=== PATIENT | female | born 1930 | race Caucasian/White ===

== ENCOUNTER 2017-04-21 15:41 | Observation (INO) | payer MEDICAID ==
--- NOTE | 2017-04-21 15:48 | EDM.PDOC ---
ED HPI GENERAL MEDICAL PROBLEM - General Chief Complaint: General Stated Complaint: DIZZINESS Time Seen by Provider: 04/21/17 15:41 Source of Information: Reports: Patient, Family History Limitations: Reports: Physical Impairment - History of Present Illness INITIAL COMMENTS - FREE TEXT/NARRATIVE: 87 y.o.w.f with a h/o CT by Afsaneh, came to due to Dizziness. Her SBP was >200 and the patient was transferred to the ed for further care. On arrival to the ed , her SBP was 175 and her dizziness improved further. Pt denied palpitations, CP. Her dizziness is slightly worse when she turns her head to left side. Pt is on no meds. She lives at an independent living place. No N/V/D. Pt has poor po intake for several days. BP 158/87 pulse 85 RR 18 Temp 36.6 O2 sat 96% on RA Onset: Today Onset Date: 04/21/17 Onset Time: 08:00 Duration: Hour(s):, Getting Worse, Intermittent Location: Reports: Generalized Quality: Reports: Other (dizzy) Severity: Mild Improves with: Reports: Rest Worsens with: Reports: Movement Context: Reports: Other (elevated BP) Associated Symptoms: Reports: No Other Symptoms headache Pain Score (Numeric/FACES): 5 - Related Data Allergies Allergy/AdvReac Type Severity Reaction Status Date / Time No Known Allergies Allergy Verified 04/21/17 16:09 Home Meds: Home Meds Aspirin [Adult Low Dose Aspirin EC] 81 mg PO DAILY 11/25/12 [History] Social & Family History - Tobacco Use Second Hand Smoke Exposure: No - Alcohol Use Days Per Week of Alcohol Use: 0 - Recreational Drug Use Recreational Drug Use: No ED ROS GENERAL - Review of Systems Review Of Systems: See Below Constitutional: Reports: No Symptoms HEENT: Reports: No Symptoms Respiratory: Reports: No Symptoms Cardiovascular: Reports: No Symptoms Endocrine: Reports: No Symptoms GI/Abdominal: Reports: No Symptoms : Reports: No Symptoms Musculoskeletal: Reports: No Symptoms Skin: Reports: No Symptoms Neurological: Reports: Dizziness Psychiatric: Reports: No Symptoms Hematologic/Lymphatic: Reports: No Symptoms Immunologic: Reports: No Symptoms ED EXAM, GENERAL - Physical Exam Exam: See Below Exam Limited By: Physical Impairment General Appearance: Alert, No Apparent Distress, Cachetic Eye Exam: Left Eye: Nystagmus (Lateral) Ears: Normal External Exam, Normal Canal Ear Exam: Bilateral Ear: Auricle Normal Nose: Normal Inspection, Normal Mucosa Throat/Mouth: Normal Inspection, Normal Lips, No Airway Compromise, Other (dry mucosal membrane) Head: Atraumatic, Normocephalic Neck: Normal Inspection, Supple, Non-Tender, Full Range of Motion Respiratory/Chest: No Respiratory Distress, Lungs Clear, Normal Breath Sounds, No Accessory Muscle Use, Chest Non-Tender Cardiovascular: Normal Peripheral Pulses, Regular Rate, Rhythm, No Edema, No Rub Peripheral Pulses: 1+: Carotid (R) GI/Abdominal: Normal Bowel Sounds, Soft, Non-Tender, No Organomegaly, No Abnormal Bruit, No Mass (Female) Exam: Deferred Rectal (Female) Exam: Deferred Back Exam: Normal Inspection, Full Range of Motion Extremities: Normal Inspection, Normal Range of Motion, Non-Tender Neurological: Alert, Oriented, CN II-XII Intact, Normal Cognition, Normal Gait ( pt was bale to walk in the ed independently, but felt dizzy) Psychiatric: Normal Affect, Normal Mood Skin Exam: Warm, Dry, Intact, Normal Color, No Rash Lymphatic: No Adenopathy EKG INTERPRETATION EKG Date: 04/21/17 Time: 15:05 Rhythm: NSR Rate (Beats/Min): 94 Curtis: Normal P-Wave: Absent QRS: Normal ST-T: Normal QT: Normal Comparison: NA - No Prior EKG EKG Interpretation Comments: intermittant Atrial-ventricular dual paced complexes Course - Vital Signs Text/Narrative:: 87 y.o.w.f with a h/o CT by Hx, came to due to Dizziness. Her SBP was >200 and the patient was transferred to the ed for further care. On arrival to the ed , her SBP was 175 and her dizziness improved further. Pt denied palpitations, CP. Her dizziness is slightly worse when she turns her head to left side. Pt is on no meds. She lives at an independent living place. No N/V/D. Pt has poor po intake for several days. BP 158/87 pulse 85 RR 18 Temp 36.6 O2 sat 96% on RA PE: Cachectic 87 y.o.w.f NAD with improving of her dizziness, FF and FN and gait were nl. (walked slowly, nl for her.) Imaging: CT head: Calcification of int carotids, NAD Labs: CBC and BMP were nl, GFR was 59, however. UA was pos for micr. hematuria, no UTI ECG: Pending Impression: Unsteady gait, Dehydration, Nystagmus, Full Code Tx: Antivert, Water po Reexam: Improved, pt still felt Dizzy Plan; Admit to zhang Pt. Daughter requested pt to be admitted because she, the patient, lives by herself and she is concerned about falling. Last Recorded V/S: Last Vital Signs Temp 36.6 C 04/22/17 21:55 Pulse 60 04/22/17 21:55 Resp 18 04/22/17 21:55 BP 111/68 04/22/17 21:55 Pulse Ox 96 04/22/17 21:55 - Orders/Labs/Meds Orders: Medication Orders Aspirin (Halfprin) 81 mg PO DAILY JAMILA Sodium Chloride (Saline Flush) 10 ml FLUSH ASDIRECTED PRN PRN Reason: Keep Vein Open Last Admin: 04/22/17 09:45 Dose: 10 ml Labs: Laboratory Tests 04/21/17 04/21/17 04/21/17 Range/Units 15:54 16:05 16:05 WBC 5.2 (4.5-12.0) X10-3/uL RBC 4.66 (3.23-5.20) x10(6)uL Hgb 13.5 (11.5-15.5) g/dL Hct 41.8 (30.0-51.3) % MCV 89.7 (80-96) fL MCH 28.9 (27.7-33.6) pg MCHC 32.2 (32.2-35.4) g/dL RDW 13.9 (11.5-15.5) % Plt Count 166 (125-369) X10(3)uL MPV 8.6 (7.4-10.4) fL Neut % (Auto) 77.2 (46-82) % Lymph % (Auto) 15.4 (13-37) % [place] % (Auto) 6.6 (4-12) % Eos % (Auto) 0 L (1.0-5.0) % Baso % (Auto) 1 (0-2) % Neut # (Auto) 4.1 (1.6-8.3) # Lymph # (Auto) 0.8 (0.6-5.0) # [place] # (Auto) 0.3 (0.0-1.3) # Eos # (Auto) 0.0 (0.0-0.8) # Baso # (Auto) 0.0 (0.0-0.2) # PT 10.7 (8.7-11.1) INR 1.06 (0.89-1.13) Sodium (135-145) mmol/L Potassium (3.5-5.3) mmol/L Chloride (100-110) mmol/L Carbon Dioxide (21-32) mmol/L BUN (7-18) mg/dL Creatinine (0.55-1.02) mg/dL Est Cr Clr Drug Dosing mL/min Estimated GFR (MDRD) (>60) BUN/Creatinine Ratio (9-20) Glucose (80-116) mg/dL Calcium (8.6-10.2) mg/dL Troponin I (<0.017-0.056) ng/mL Urine Color Yellow (YELLOW) Urine Appearance Clear (CLEAR) Urine pH 8.0 H (5.0-6.5) Ur Specific [place] 1.010 (1.010-1.025) Urine Protein Negative (NEGATIVE) mg/dL Urine Glucose (UA) Normal (NEGATIVE) mg/dL Urine Ketones Negative (NEGATIVE) mg/dL Urine Occult Blood Moderate H (NEGATIVE) Urine Nitrite Negative (NEGATIVE) Urine Bilirubin Negative (NEGATIVE) Urine Urobilinogen Normal (NEGATIVE) mg/dL Ur Leukocyte Esterase Negative (NEGATIVE) Urine RBC 5-10 (0) Urine WBC 0-5 (0) Ur Squamous Epith Cells Few H (NS,R,O) Urine Bacteria Few H (NS) 04/21/17 04/21/17 Range/Units 16:05 16:05 WBC (4.5-12.0) X10-3/uL RBC (3.23-5.20) x10(6)uL Hgb (11.5-15.5) g/dL Hct (30.0-51.3) % MCV (80-96) fL MCH (27.7-33.6) pg MCHC (32.2-35.4) g/dL RDW (11.5-15.5) % Plt Count (125-369) X10(3)uL MPV (7.4-10.4) fL Neut % (Auto) (46-82) % Lymph % (Auto) (13-37) % [place] % (Auto) (4-12) % Eos % (Auto) (1.0-5.0) % Baso % (Auto) (0-2) % Neut # (Auto) (1.6-8.3) # Lymph # (Auto) (0.6-5.0) # [place] # (Auto) (0.0-1.3) # Eos # (Auto) (0.0-0.8) # Baso # (Auto) (0.0-0.2) # PT (8.7-11.1) INR (0.89-1.13) Sodium 143 (135-145) mmol/L Potassium 3.8 (3.5-5.3) mmol/L Chloride 105 (100-110) mmol/L Carbon Dioxide 28 (21-32) mmol/L BUN 12 (7-18) mg/dL Creatinine 0.9 (0.55-1.02) mg/dL Est Cr Clr Drug Dosing 33.72 mL/min Estimated GFR (MDRD) 59 L (>60) BUN/Creatinine Ratio 13.3 (9-20) Glucose 112 (80-116) mg/dL Calcium 9.7 (8.6-10.2) mg/dL Troponin I < 0.017 L (<0.017-0.056) ng/mL Urine Color (YELLOW) Urine Appearance (CLEAR) Urine pH (5.0-6.5) Ur Specific [place] (1.010-1.025) Urine Protein (NEGATIVE) mg/dL Urine Glucose (UA) (NEGATIVE) mg/dL Urine Ketones (NEGATIVE) mg/dL Urine Occult Blood (NEGATIVE) Urine Nitrite (NEGATIVE) Urine Bilirubin (NEGATIVE) Urine Urobilinogen (NEGATIVE) mg/dL Ur Leukocyte Esterase (NEGATIVE) Urine RBC (0) Urine WBC (0) Ur Squamous Epith Cells (NS,R,O) Urine Bacteria (NS) Meds: Medications Generic Name Dose Route Start Last Admin Trade Name Freq PRN Reason Stop Dose Admin Aspirin 81 mg 04/23/17 09:00 Halfprin PO DAILY JAMILA Sodium Chloride 10 ml 04/21/17 15:49 04/22/17 09:45 Saline Flush FLUSH 10 ml ASDIRECTED PRN Administration Keep Vein Open Discontinued Medications Generic Name Dose Route Start Last Admin Trade Name Freq PRN Reason Stop Dose Admin Sodium Chloride 1,000 mls @ 125 mls/hr 04/21/17 17:45 04/22/17 09:30 Normal Saline IV 125 mls/hr ASDIRECTED JAMILA Infusion Meclizine HCl 25 mg 04/21/17 16:44 04/21/17 16:55 Antivert PO 04/21/17 16:45 25 mg ONETIME ONE Administration Departure - Departure Time of Disposition: 17:43 Disposition: Refer to Observation Condition: Fair Clinical Impression: Unsteady gait - Discharge Information
[2017-04-21] MEDS ORDERED: Sodium Chloride 0.9% 10 ML Syringe FLUSH PRN (15:49)
[2017-04-21] MEDS ORDERED: Meclizine 25 MG Tab PO ONE (16:44)
[2017-04-21] MEDS: Sodium Chloride 0.9% 1,000 ML IV SCH (20:04)
[2017-04-22] MEDS: Sodium Chloride 0.9% 1,000 ML IV SCH (04:17)
--- NOTE | 2017-04-22 09:46 | PCM.HP ---
H&P History of Present Illness - General Date of Service: 04/22/17 Source of Information: Patient History Limitations: Reports: No Limitations - History of Present Illness Initial Comments - Free Text/Narative: This is a pleasant 87-year-old female patient came in last night after she been seen in urgent care. She states it 6 AM in the morning she got up and she had lots of dizziness. She was so dizzy she felt that she was going to fall so she crawled over to the bathroom. Later she had her daughter take her to the urgent care. She started having some chest discomfort with the dizziness. She has a history of ID 7 years ago. They transferred her to the ER and they did a CT scan in the ER doc reported that it was negative. Her blood pressure in the urgent care was over 200 systolic. headache Pain Score (Numeric/FACES): 5 - Related Data Allergies/Adverse Reactions: Allergies Allergy/AdvReac Type Severity Reaction Status Date / Time No Known Allergies Allergy Verified 04/21/17 16:09 Home Medications: Home Meds Aspirin [Adult Low Dose Aspirin EC] 81 mg PO DAILY 11/25/12 [History] Past Medical History Cardiovascular History: Reports: Other (See Below) Other Cardiovascular History: daughter states that patient had a heart attack 10 years ago and was sent to [place]. 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 [employer] WORK[employer] History: Reports: - Past Surgical History GI Surgical History: Reports: Cholecystectomy Oncologic Surgical History: Reports: Mastectomy Other Oncologic Surgeries/Procedures: Right side Social & Family History - Family History Family Medical History: Noncontributory - Tobacco Use Smoking Status *Q: Never Smoker Second Hand Smoke Exposure: No - Caffeine Use Caffeine Use: Reports: Coffee - Alcohol Use Days Per Week of Alcohol Use: 0 - Recreational Drug Use Recreational Drug Use: No H&P Review of Systems - Review of Systems: Review Of Systems: See Below General: Reports: No Symptoms HEENT: Reports: No Symptoms Pulmonary: Reports: No Symptoms Cardiovascular: Reports: Chest Pain, Palpitations Gastrointestinal: Reports: No Symptoms Genitourinary: Reports: No Symptoms Musculoskeletal: Reports: No Symptoms Skin: Reports: No Symptoms Psychiatric: Reports: No Symptoms Neurological: Reports: Dizziness (Spinning around motion.) Hematologic/Lymphatic: Reports: No Symptoms Immunologic: Reports: No Symptoms Exam - Exam Exam: See Below - Vital Signs Vital Signs: Last Vital Signs Temp 98.1 F 04/22/17 04:00 Pulse 72 04/22/17 06:41 Resp 18 04/22/17 06:41 BP 143/90 H 04/22/17 06:41 Pulse Ox 100 04/22/17 06:41 Weight: 111 lb 9.6 oz - Exam General: Alert, Oriented, Cooperative HEENT: Hearing Intact, Posterior Pharynx Clear, TMs Clear Neck: Supple, Trachea Midline. No: Lymphadenopathy Lungs: Clear to Auscultation, Normal Respiratory Effort Cardiovascular: Regular Rate, Regular Rhythm. No: Systolic Murmur, Diastolic Murmur GI/Abdominal Exam: Normal Bowel Sounds, Soft, Non-Tender, No Organomegaly, No Distention, No Abnormal Bruit, No Mass, Pelvis Stable Back Exam: Normal Inspection, Full Range of Motion Extremities: Normal Inspection, No Pedal Edema Skin: Warm, Dry, Intact Neurological: Normal Speech, Normal Tone Neuro Extensive - Mental Status: Alert, Oriented x3, Normal Mood/Affect, Normal Cognition, Memory Intact Neuro Extensive - Motor, Sensory, Reflexes: Normal Gait. No: Ataxia Psychiatric: Alert, Normal Affect, Normal Mood - Patient Data Result Diagrams: 04/21/17 16:05 04/21/17 16:05 *Q Meaningful Use (ADM) - VTE *Q VTE Criteria *Q: - Stroke *Q Stroke Criteria *Q: - AMI *Q AMI Criteria *Q: - Problem List (1) Vertigo SNOMED Code(s): 347030359 ICD Code: R42 - DIZZINESS AND GIDDINESS Status: Acute Current Visit: Yes (2) High blood pressure SNOMED Code(s): 97741035 ICD Code: I10 - ESSENTIAL (PRIMARY) HYPERTENSION Status: Acute Current Visit: Yes (3) Microscopic hematuria SNOMED Code(s): 592959789 ICD Code: R31.29 - OTHER MICROSCOPIC HEMATURIA Status: Acute Current Visit: Yes (4) Palliative care status SNOMED Code(s): 256753442 ICD Code: Z51.5 - ENCOUNTER FOR PALLIATIVE CARE Status: Acute Current Visit: Yes Problem List Initiated/Reviewed/Updated: Yes Orders Last 24hrs: Active Orders 24 hr Category Date Time Status EKG Documentation Completion [RC] ASDIRECTED Care 04/21/17 18:43 Active EKG Documentation Completion [RC] ASDIRECTED Care 04/22/17 09:24 Active TROPONIN I [CHEM] Routine Lab 04/22/17 09:24 Ordered EKG 12 Lead [EK] Routine Ther 04/21/17 18:42 Ordered EKG 12 Lead [EK] Stat Ther 04/22/17 09:24 Ordered Medication Orders Sodium Chloride (Normal Saline) 1,000 mls @ 125 mls/hr IV ASDIRECTED JAMILA Last Admin: 04/22/17 04:17 Dose: 125 mls/hr Infusion: 04/22/17 04:04 Dose: 125 mls/hr Admin: 04/21/17 20:04 Dose: 125 mls/hr Sodium Chloride (Saline Flush) 10 ml FLUSH ASDIRECTED PRN PRN Reason: Keep Vein Open Assessment/Plan Comment:: 1. Admit for observation. 2. Full code. 3. IV fluids. 4. Meclizine when necessary. 5. Repeat EKG and troponin the a.m. Troponin was normal and EKG had chronic findings but no acute findings. 6. Patient's only on aspirin and eyedrops at home. Resume medications. 7. Observed see how the patient does. Watch blood pressure closely. If it does not restart to resolve consider giving a beta roland. 8. Chest pain has resolved but watch for recurrence. 9. Up with assist in ambulation with assist. 10. Diet as tolerated.
--- NOTE | 2017-04-23 08:14 | PCM.PN ---
- General Info Date of Service: 04/23/17 Admission Dx/Problem (Free Text): Patient states when she is laying in bed and looks up she has a little dizziness. When she gets up and walks she has no dizziness now. Blood pressure is under control and no medications. Her strength is normal the patient states. - Patient Data Vitals - Most Recent: Last Vital Signs Temp 98.1 F 04/23/17 04:00 Pulse 74 04/23/17 04:00 Resp 18 04/23/17 04:00 BP 147/80 H 04/23/17 04:00 Pulse Ox 95 04/23/17 04:00 Weight - Most Recent: 111 lb 9.6 oz I&O - Last 24 Hours: Intake & Output 04/22/17 04/23/17 04/23/17 22:59 06:59 14:59 Intake Total 400 Output Total 700 400 Balance -300 -400 Lab Results Last 24 Hours: Laboratory Results - last 24 hr 04/22/17 Range/Units 10:22 Troponin I 0.018 (<0.017-0.056) ng/mL Med Orders - Current: Current Medications Aspirin (Halfprin) 81 mg PO DAILY [facility] Sodium Chloride (Saline Flush) 10 ml FLUSH ASDIRECTED PRN PRN Reason: Keep Vein Open Last Admin: 04/22/17 09:45 Dose: 10 ml Discontinued Medications Sodium Chloride (Normal Saline) 1,000 mls @ 125 mls/hr IV ASDIRECTED JAMILA Last Infusion: 04/22/17 09:30 Dose: 125 mls/hr Meclizine HCl (Antivert) 25 mg PO ONETIME ONE Stop: 04/21/17 16:45 Last Admin: 04/21/17 16:55 Dose: 25 mg - Exam General: Alert, Oriented Lungs: Normal Respiratory Effort Back Exam: Normal Inspection, Full Range of Motion Extremities: Normal Range of Motion, Non-Tender, No Pedal Edema Neurological: Normal Gait, Normal Speech, Normal Tone Psy/Mental Status: Alert, Normal Affect, Normal Mood - Problem List & Annotations (1) Vertigo SNOMED Code(s): 071949495 Code(s): R42 - DIZZINESS AND GIDDINESS Status: Acute Current Visit: Yes (2) Microscopic hematuria SNOMED Code(s): 085200717 Code(s): R31.29 - OTHER MICROSCOPIC HEMATURIA Status: Acute Current Visit : Yes (3) Palliative care status SNOMED Code(s): 311587682 Code(s): Z51.5 - ENCOUNTER FOR PALLIATIVE CARE Status: Acute Current Visit: Yes - Problem List Review Problem List Initiated/Reviewed/Updated: Yes - My Orders Last 24 Hours: My Active Orders 04/22/17 09:24 EKG 12 Lead [EK] Stat 04/22/17 09:47 Convert IV to Saline Lock [OM.PC] Routine 04/23/17 08:12 Ready for Discharge [RC] PER UNIT ROUTINE 04/23/17 09:00 Aspirin [Halfprin] 81 mg PO DAILY - Plan Plan:: 1. Discharge to home on [id number] meclizine. 2. Follow-up in 7-10 days with her primary provider and check a UA with micro-.
--- NOTE | 2017-04-23 08:16 | PCM.DCSUM1 ---
Discharge Summary - Hospital Course Free Text/Narrative:: Hospital course-patient was admitted she had 5-10 red blood cells on micro-. She has no symptoms. Patient's dizziness was improved. No signs of stroke. CT scan was verbally reported to me by the ER doc who got the verbal report so there is no signs of stroke. Patient was able to walk by herself and did well. The only time she had dizzy hears when she was in bed looking up. But she is walking she did not get dizzy. Suggestion she get a walker temporarily until this gets better. She is meclizine [id number] when necessary. Brief History: This is a pleasant 87-year-old female patient came in last night after she been seen in urgent care. She states it 6 AM in the morning she got up and she had lots of dizziness. She was so dizzy she felt that she was going to fall so she crawled over to the bathroom. Later she had her daughter take her to the urgent care. She started having some chest discomfort with the dizziness. She has a history of [place] 7 years ago. They transferred her to the ER and they did a CT scan in the ER doc reported that it was negative. Her blood pressure in the urgent care was over 200 systolic. - Discharge Data Discharge Date: 04/23/17 Discharge Disposition: Home, Self-Care 01 Condition: Good - Discharge Diagnosis/Problem(s) (1) Vertigo SNOMED Code(s): 154386504 ICD Code: R42 - DIZZINESS AND GIDDINESS Status: Acute Current Visit: Yes (2) Microscopic hematuria SNOMED Code(s): 639386956 ICD Code: R31.29 - OTHER MICROSCOPIC HEMATURIA Status: Acute Current Visit: Yes (3) Palliative care status SNOMED Code(s): 570529580 ICD Code: Z51.5 - ENCOUNTER FOR PALLIATIVE CARE Status: Acute Current Visit: Yes - Patient Instructions Diet: Regular Diet as Tolerated Activity: As Tolerated Driving: Do Not Drive Showering/Bathing: May Shower Notify Provider of: Increased Pain Other/Special Instructions: 1. Recheck with Dr. Cevallos in 7-10 days with a UA with micro-before the appointment. 2. Meclizine [id number] when necessary. - Discharge Plan Home Medications: Home Meds Aspirin [Adult Low Dose Aspirin EC] 81 mg PO DAILY 11/25/12 [History] Forms: ED Department Discharge Referrals: Crow Cevallos MD [Primary Care Provider] - - Patient Data Vitals - Most Recent: Last Vital Signs Temp 98.1 F 04/23/17 04:00 Pulse 74 04/23/17 04:00 Resp 18 04/23/17 04:00 BP 147/80 H 04/23/17 04:00 Pulse Ox 95 04/23/17 04:00 Weight - Most Recent: 111 lb 9.6 oz I&O - Last 24 hours: Intake & Output 04/22/17 04/23/17 04/23/17 22:59 06:59 14:59 Intake Total 400 Output Total 700 400 Balance -300 -400 Lab Results - Last 24 hrs: Laboratory Results - last 24 hr 04/22/17 Range/Units 10:22 Troponin I 0.018 (<0.017-0.056) ng/mL Med Orders - Current: Current Medications Aspirin (Halfprin) 81 mg PO DAILY JAMILA Sodium Chloride (Saline Flush) 10 ml FLUSH ASDIRECTED PRN PRN Reason: Keep Vein Open Last Admin: 04/22/17 09:45 Dose: 10 ml Discontinued Medications Sodium Chloride (Normal Saline) 1,000 mls @ 125 mls/hr IV ASDIRECTED JAMILA Last Infusion: 04/22/17 09:30 Dose: 125 mls/hr Meclizine HCl (Antivert) 25 mg PO ONETIME ONE Stop: 04/21/17 16:45 Last Admin: 04/21/17 16:55 Dose: 25 mg *Q Meaningful Use (DIS) - VTE *Q VTE Criteria *Q: - Stroke *Q Stroke Criteria *Q: - AMI *Q AMI Criteria *Q:
[2017-04-23] MEDS ORDERED: Aspirin 81 MG Tab.EC PO SCH (09:00)
[2017-04-23 10:09] VITALS: BP 134/89
--- NOTE | 2017-04-24 08:23 | CT ---
INDICATION: Dizziness, headache - frontal - increased blood pressure started at 0800 today. No history of trauma or previous strokes. CT HEAD WITHOUT CONTRAST: Serial contiguous 2.5 and 5 mm sections were obtained through the brain without contrast. Total exam DLP = 949.36 mGy-cm. Retention cysts are noted, one in each maxillary antrum and one in each of two ethmoidal air cells on the right. These are of small size. Otherwise, paranasal sinuses were well-aerated. Mastoid air cells were well-aerated. Degenerative changes are noted at the atlantoodontoid joint of mild degree. No cranial abnormality was suggested. No shift of midline structures was seen. Ventricles are prominent, compatible with central atrophy. Calcifications are noted in the internal carotid arteries. Cavum septum pellucidum is noted - a normal variant. Decreased density is noted in the white matter in a patchy fashion, compatible with moderate microvascular disease. Other cause of leukoencephalopathy cannot be excluded, however. No bleeding site or hematoma was identified - no definite acute intracranial abnormality was seen. IMPRESSION: 1. No definite acute intracranial abnormality. 2. Moderate microvascular disease type changes in the white matter, although other cause of leukoencephalopathy cannot be excluded. 3. Cerebrovascular disease with internal carotid artery calcifications. 4. Minimal retention cysts in the paranasal sinuses, as noted above. 5. Central atrophy of moderate degree. Report was called to Dr. Parisi at 1700 hours on 04/21/2017. [facility]
== END 2017-04-23 11:25 | disposition home or self-care (01) ==
LOC: FB.ED 15:41 → FB.MS 18:00
PROVIDERS: ADMIT Emergency Medicine; ATTEND Family Medicine
DX: R42 Dizziness and giddiness (principal); R31.29 Other microscopic hematuria; I10 Essential (primary) hypertension; I25.2 Old myocardial infarction; Z51.5 Encounter for palliative care; Z79.82 Long term (current) use of aspirin; Z90.49 Acquired absence of other specified parts of digestive tract
CPT/HCPCS: 36415; 70450; 80048; 81001; 84484; 85025; 85610; 93005; 96360; 96361; 99284; A9270-GY; G0378; J7040; J7050

== ENCOUNTER 2018-08-21 10:39 | Emergency (ER) | payer MEDICAID, MEDICARE ==
[2018-08-21] MEDS ORDERED: Sodium Chloride 0.9% 10 ML Syringe FLUSH PRN (11:03)
[2018-08-21] MEDS ORDERED: Sodium Chloride 0.9% 500 ML IV ONE ×2 (11:09→11:54)
[2018-08-21] MEDS ORDERED: Sodium Chloride 0.9% 1,000 ML IV SCH (11:15)
--- NOTE | 2018-08-21 11:34 | EDM.PDOC ---
ED HPI GENERAL MEDICAL PROBLEM - General Chief Complaint: Cardiovascular Problem Stated Complaint: SYNCOPE AND VOMITTING Time Seen by Provider: 08/21/18 11:05 Source of Information: Reports: Patient History Limitations: Reports: No Limitations - History of Present Illness INITIAL COMMENTS - FREE TEXT/NARRATIVE: 88-year-old female who reports that on Monday she began to have some nausea and malaise in the afternoon and by that evening she had vomiting, just a few episodes at that time. The following day she had vomiting and diarrhea, both were fairly profuse. She reports that Monday her vomiting stopped and she has had continued diarrhea that has been fairly profuse and watery. She has had little luck keeping any fluids down on Monday night and Monday but has been able to take liquids since then but with poor intake of these liquids and numerous diarrhea stools. Last night she began to feel very weak and dizzy while she was standing at the stove and was trying to get herself away from the stove and apparently had a syncopal episode where she fell and hit her chin and her right shoulder. She was able to get herself up off the floor following this (unknown period of time), ate some soup and then went to bed. She had also had diarrhea at that time and was able to clean herself up following this. She has had no chest pain. She's had no shortness of breath. She does have some right shoulder pain which she rates as about a 5 or 6/10. It is a sharp and sore pain that is worse with movement and palpation. She has had some intermittent abdominal cramping but has no abdominal pain now. She has some mild posterior neck pain. She has an abrasion over her left chin. No fevers. No chills. She has had sweats. She feels dizzy and weak all over. She required quite a bit of assistance from her daughter to get her into the emergency room. She presents via motor vehicle. Apparently her son had vomiting and diarrhea this weekend as well. There are no other associated signs or symptoms. There are no other modifying factors. Onset: Other (08/17/2018.) Duration: Getting Worse Location: Reports: Head, Neck, Abdomen, Upper Extremity, Right (Right shoulder) Quality: Reports: Sharp (And sore in neck, shoulder and head.), Other (Cramping and sore in abdomen) Severity: Moderate Improves with: Reports: Rest Worsens with: Reports: Movement Context: Reports: Other (As above) Associated Symptoms: Reports: Loss of Appetite, Nausea/Vomiting, Weakness Treatments PRODUCT MANAGEMENT MANAGER: Reports: Other (see below) (Nothing) - Related Data Allergies Allergy/AdvReac Type Severity Reaction Status Date / Time No Known Allergies Allergy Verified 08/21/18 11:19 Home Meds: Home Meds Aspirin [Adult Low Dose Aspirin EC] 81 mg PO DAILY 11/25/12 [History] Past Medical History HEENT History: Reports: Other (See Below) (Dry eyes on Restasis drops) Oncologic (Cancer) History: Reports: Breast - Past Surgical History GI Surgical History: Reports: Cholecystectomy, Colonoscopy Female Surgical History: Reports: Mastectomy (Right) Oncologic Surgical History: Reports: Mastectomy Other Oncologic Surgeries/Procedures: Right side Social & Family History - Tobacco Use Smoking Status *Q: Never Smoker - Caffeine Use Caffeine Use: Reports: Coffee - Alcohol Use Alcohol Use History: Yes Alcohol Use Frequency: Rarely - Living Situation & Occupation Living situation: Reports: , Assisted Living Occupation: Retired Social History Comment: Her daughter is here with her. ED ROS GENERAL - Review of Systems Review Of Systems: See Below Constitutional: Reports: Chills, Malaise, Weakness, Night Sweats HEENT: Reports: Other (Dry mouth) Respiratory: Reports: No Symptoms Cardiovascular: Reports: Lightheadedness, Palpitations GI/Abdominal: Reports: Abdominal Pain, Diarrhea, Nausea, Vomiting : Reports: No Symptoms Musculoskeletal: Reports: No Symptoms Skin: Reports: No Symptoms Neurological: Reports: Headache (Mild) Hematologic/Lymphatic: Reports: No Symptoms Immunologic: Reports: No Symptoms ED EXAM, GENERAL - Physical Exam Exam: See Below Exam Limited By: No Limitations General Appearance: Alert, Moderate Distress, Thin, Other (She is awake alert and appropriately responsive.) Eye Exam: Bilateral Eye: EOMI, Normal Inspection, PERRL Ears: Normal External Exam Ear Exam: Bilateral Ear: Auricle Normal Nose: Normal Inspection, Normal Mucosa, No Blood Throat/Mouth: Normal Voice, No Airway Compromise, Other (Dry mucous membranes; no posterior pharyngeal erythema) Head: Other (Tenderness with ecchymosis and abrasion on the lower chin) Respiratory/Chest: No Respiratory Distress, Lungs Clear, Normal Breath Sounds, No Accessory Muscle Use, Chest Non-Tender Peripheral Pulses: 2+: Radial (L), Radial (R), Dorsalis Pedis (L), Dorsalis Pedis (R) GI/Abdominal: Soft (And scaphoid), Non-Tender, No Mass, Abnormal Bowel Sounds ( Increased) Back Exam: Normal Inspection Extremities: Normal Inspection Neurological: Alert, Oriented, CN II-XII Intact, Normal Cognition, No Motor/ Sensory Deficits Skin Exam: Warm, Dry, Normal Color, No Rash EKG INTERPRETATION EKG Date: 08/21/18 Time: 11:00 Rhythm: A-Fib (With RVR) Rate (Beats/Min): 187 Lulu: LAD-Left Lulu Deviation P-Wave: Absent QRS: LBBB (Left anterior fascicular block) ST-T: Depressed (Diffuse and probably rate related) QT: Normal Comparison: Change From Previous EKG (A. fib is new from EKG performed on 2017. LVH, left anterior fascicular block and poor R-wave progression is same) EKG Interpretation Comments: Repeat EKG performed after 1 L normal saline bolus had been given and diltiazem times IV. 08/21/2018 13:28: EKG shows a normal sinus rhythm with a rate of 76. There is evidence of LVH and poor R-wave progression but the rate related ST-T changes have resolved there is a left axis with a prolonged QTC. Course - Vital Signs Last Recorded V/S: Last Vital Signs Temp 36.2 C 08/21/18 11:04 Pulse 175 H 08/21/18 11:04 Resp 18 08/21/18 11:04 BP 113/73 08/21/18 11:04 Pulse Ox 91 L 08/21/18 11:04 - Orders/Labs/Meds Orders: Active Orders 24 hr Category Date Time Status EKG Documentation Completion [RC] ASDIRECTED Care 08/21/18 11:07 Active Insert Urinary Catheter [OM.PC] Q24H Care 08/21/18 11:15 Ordered Urinary Catheter Assessment [RC] QSHIFT Care 08/21/18 11:07 Active Vaccines to be Administered [RC] PER UNIT ROUTINE Care 08/21/18 11:43 Active Cervical Spine wo Cont [CT] Stat Exams 08/21/18 11:41 Taken Chest 1V Frontal [CR] Stat Exams 08/21/18 11:03 Taken Head wo Cont [CT] Stat Exams 08/21/18 11:41 Taken Shoulder Comp Rt [CR] Stat Exams 08/21/18 11:41 Taken CULTURE BLOOD [BC] Urgent Lab 08/21/18 11:40 Received CULTURE BLOOD [BC] Urgent Lab 08/21/18 11:45 Received CULTURE URINE [RM] Stat Lab 08/21/18 11:45 Received Diltiazem 125 mg Med 08/21/18 13:15 Active Sodium Chloride 0.9% [Normal Saline] 100 ml IV NOW Sodium Chloride 0.9% [Normal Saline] 1,000 ml Med 08/21/18 11:15 Active IV ASDIRECTED Sodium Chloride 0.9% [Saline Flush] Med 08/21/18 11:03 Active 10 ml FLUSH ASDIRECTED PRN Blood Culture x2 Reflex Set [OM.PC] Urgent Oth 08/21/18 11:03 Ordered Peripheral IV Insertion Adult [OM.PC] Routine Oth 08/21/18 11:03 Ordered EKG 12 Lead [EK] Routine Ther 08/21/18 11:03 Ordered Medication Orders Sodium Chloride (Normal Saline) 1,000 mls @ 100 mls/hr IV ASDIRECTED JAMILA Last Admin: 08/21/18 11:37 Dose: 100 mls/hr Diltiazem HCl 125 mg/ Sodium (Chloride) 125 mls @ 5 mls/hr IV NOW STA; Protocol Stop: 08/22/18 14:14 Sodium Chloride (Saline Flush) 10 ml FLUSH ASDIRECTED PRN PRN Reason: Keep Vein Open Labs: Laboratory Tests 08/21/18 08/21/18 08/21/18 Range/Units 11:40 11:40 11:40 WBC 5.4 (4.5-12.0) X10-3/uL RBC 4.31 (3.23-5.20) x10(6)uL Hgb 13.1 (11.5-15.5) g/dL Hct 39.1 (30.0-51.3) % MCV 90.8 (80-96) fL MCH 30.4 (27.7-33.6) pg MCHC 33.5 (32.2-35.4) g/dL RDW 14.3 (11.5-15.5) % Plt Count 136 (125-369) X10(3)uL MPV 8.6 (7.4-10.4) fL Neut % (Auto) 80.9 (46-82) % Lymph % (Auto) 9.9 L (13-37) % Sunflower % (Auto) 9.0 (4-12) % Eos % (Auto) 0 L (1.0-5.0) % Baso % (Auto) 0 (0-2) % Neut # (Auto) 4.3 (1.6-8.3) # Lymph # (Auto) 0.5 L (0.6-5.0) # Sunflower # (Auto) 0.5 (0.0-1.3) # Eos # (Auto) 0.0 (0.0-0.8) # Baso # (Auto) 0.0 (0.0-0.2) # Sodium 142 (135-145) mmol/L Potassium 3.4 L (3.5-5.3) mmol/L Chloride 105 (100-110) mmol/L Carbon Dioxide 21 (21-32) mmol/L BUN 26 H D (7-18) mg/dL Creatinine 1.3 H (0.55-1.02) mg/dL Est Cr Clr Drug Dosing TNP Estimated GFR (MDRD) 39 L (>60) BUN/Creatinine Ratio 20.0 (9-20) Glucose 145 H (80-116) mg/dL Lactic Acid (0.4-2.2) mmol/L Calcium 8.5 L (8.6-10.2) mg/dL Total Bilirubin 0.5 (0.1-1.3) mg/dL AST 105 H (5-25) IU/L ALT 56 H (12-36) U/L Alkaline Phosphatase 135 H (56-112) IU/L Creatine Kinase (60-160) IU/L Troponin I (<0.017-0.056) ng/mL C-Reactive Protein (0.5-0.9) mg/dL NT-Pro-B Natriuret Pep (<=450) pg/mL Total Protein 6.8 (6.0-8.0) g/dL Albumin 3.4 (2.9-4.5) g/dL Globulin 3.4 g/dL Albumin/Globulin Ratio 1.0 Urine Color Yellow (YELLOW) Urine Appearance Slightly cloudy (CLEAR) Urine pH 5.0 (5.0-6.5) Ur Specific [place] 1.025 (1.010-1.025) Urine Protein 100 H (NEGATIVE) mg/dL Urine Glucose (UA) 50 H (NORMAL) mg/dL Urine Ketones 15 H (NEGATIVE) mg/dL Urine Occult Blood Moderate H (NEGATIVE) Urine Nitrite Negative (NEGATIVE) Urine Bilirubin Moderate H (NEGATIVE) Urine Urobilinogen 1 H (NEGATIVE) mg/dL Ur Leukocyte Esterase Small H (NEGATIVE) Urine RBC 5-10 H (0-5) Urine WBC 5-10 H (0-5) Ur Squamous Epith Cells Few H (NS,R,O) Amorphous Sediment Many Urine Bacteria Few H (NS) Hyaline Casts Many H (NS) Fine Granular Casts Few H (NS) Coarse Granular Casts Few H (NS) Urine Mucus Few H (NS) 08/21/18 08/21/18 08/21/18 Range/Units 11:40 11:40 11:40 WBC (4.5-12.0) X10-3/uL RBC (3.23-5.20) x10(6)uL Hgb (11.5-15.5) g/dL Hct (30.0-51.3) % MCV (80-96) fL MCH (27.7-33.6) pg MCHC (32.2-35.4) g/dL RDW (11.5-15.5) % Plt Count (125-369) X10(3)uL MPV (7.4-10.4) fL Neut % (Auto) (46-82) % Lymph % (Auto) (13-37) % Sunflower % (Auto) (4-12) % Eos % (Auto) (1.0-5.0) % Baso % (Auto) (0-2) % Neut # (Auto) (1.6-8.3) # Lymph # (Auto) (0.6-5.0) # Sunflower # (Auto) (0.0-1.3) # Eos # (Auto) (0.0-0.8) # Baso # (Auto) (0.0-0.2) # Sodium (135-145) mmol/L Potassium (3.5-5.3) mmol/L Chloride (100-110) mmol/L Carbon Dioxide (21-32) mmol/L BUN (7-18) mg/dL Creatinine (0.55-1.02) mg/dL Est Cr Clr Drug Dosing Estimated GFR (MDRD) (>60) BUN/Creatinine Ratio (9-20) Glucose (80-116) mg/dL Lactic Acid 2.6 H (0.4-2.2) mmol/L Calcium (8.6-10.2) mg/dL Total Bilirubin (0.1-1.3) mg/dL AST (5-25) IU/L ALT (12-36) U/L Alkaline Phosphatase (56-112) IU/L Creatine Kinase 210 H (60-160) IU/L Troponin I 2.383 H* (<0.017-0.056) ng/mL C-Reactive Protein < 0.2 L (0.5-0.9) mg/dL NT-Pro-B Natriuret Pep 2993 H* (<=450) pg/mL Total Protein (6.0-8.0) g/dL Albumin (2.9-4.5) g/dL Globulin g/dL Albumin/Globulin Ratio Urine Color (YELLOW) Urine Appearance (CLEAR) Urine pH (5.0-6.5) Ur Specific [place] (1.010-1.025) Urine Protein (NEGATIVE) mg/dL Urine Glucose (UA) (NORMAL) mg/dL Urine Ketones (NEGATIVE) mg/dL Urine Occult Blood (NEGATIVE) Urine Nitrite (NEGATIVE) Urine Bilirubin (NEGATIVE) Urine Urobilinogen (NEGATIVE) mg/dL Ur Leukocyte Esterase (NEGATIVE) Urine RBC (0-5) Urine WBC (0-5) Ur Squamous Epith Cells (NS,R,O) Amorphous Sediment Urine Bacteria (NS) Hyaline Casts (NS) Fine Granular Casts (NS) Coarse Granular Casts (NS) Urine Mucus (NS) Meds: Medications Generic Name Dose Route Start Last Admin Trade Name Freq PRN Reason Stop Dose Admin Sodium Chloride 1,000 mls @ 100 mls/hr 08/21/18 11:15 08/21/18 11:37 Normal Saline IV 100 mls/hr ASDIRECTED JAMILA Administration Diltiazem HCl 125 mg/ Sodium 125 mls @ 5 mls/hr 08/21/18 13:15 Chloride IV 08/22/18 14:14 NOW STA Protocol 5 MG/HR Sodium Chloride 10 ml 08/21/18 11:03 Saline Flush FLUSH ASDIRECTED PRN Keep Vein Open Discontinued Medications Generic Name Dose Route Start Last Admin Trade Name Varghese PRN Reason Stop Dose Admin Diltiazem HCl 10 mg 08/21/18 12:30 08/21/18 12:41 Diltiazem IVPUSH 08/21/18 12:31 10 mg ONETIME ONE Administration Diphtheria/Tetanus/Acell Pertussis 0.5 ml 08/21/18 11:43 08/21/18 12:46 Adacel IM 08/21/18 11:44 0.5 ml .ONCE ONE Administration Sodium Chloride 500 mls @ 999 mls/hr 08/21/18 11:09 08/21/18 11:05 Normal Saline IV 08/21/18 11:39 999 mls/hr .BOLUS ONE Administration Sodium Chloride 500 mls @ 999 mls/hr 08/21/18 11:54 08/21/18 12:05 Normal Saline IV 08/21/18 12:24 999 mls/hr .BOLUS ONE Administration - Radiology Interpretation Free Text/Narrative:: Portable chest x-ray showed no evidence of congestive heart failure. There was no pneumonia. Per the [facility] radiologist. Right shoulder x-ray shows no acute fracture. CT scan of the head showed no acute abnormality per the [facility] radiologist. CT scan of cervical spine showed no acute fracture or malalignment per the [facility] radiologist. - Re-Assessments/Exams Free Text/Narrative Re-Assessment/Exam: 08/21/18 12:15: Patient has received a fluid bolus. Her blood pressure is up in the 90-100 systolic range but she still has heart rate in the 140-180 range. She is awake and alert. She denies any pain at present. She has no trouble breathing at this point. The plan will be to give her an additional fluid bolus and also to give her diltiazem cautiously to attempt rate control. 08/21/18 13:05: Heart rate is down into the 90s to 110s and still in atrial fibrillation. Her blood pressure is in the 110 systolic range. I will plan on giving her another 5 mg of diltiazem placing her on a diltiazem drip. 08/21/18 13:35: The patient's heart rate is down in the 70s and EKG confirms conversion to normal sinus rhythm. Her blood pressure is 110-120 systolic. She is awake, alert and appropriate. A Werner catheter is in place for accurate monitoring of urine output and she has begun to make urine. She has had no diarrhea stools while in the emergency department. She has had no vomiting. She denies any chest pain or shortness of breath at this time. She states she feels much improved than previous. The CT scans of her head and cervical spine are negative. The x-ray of her right shoulder is negative. The patient does have evidence of volume depletion with elevated BUN/creatinine/acute kidney injury. She also has an elevated troponin consistent with a non-STEMI. She will need cardiology specially services which are not available at [facility]. I discussed this with the patient and with her daughter and they would prefer that I discussed the case with the doctors at [facility] in [place]. 08/21/18 13:45: I discussed patient's case with Dr. Campbell, hospitalist at [facility] in [place], and he has agreed to accept the patient in transfer. The patient will be transferred via ambulance to [facility] for direct admission. The patient and her daughter are in agreement with this plan for transfer. 08/21/18 15:08: EMS is here and patient is being transported to [facility] now. She still has no chest pain. Her breathing pattern is normal. Her O2 saturation is normal. Her blood pressure is in the 120 systolic range with pulse rate in the 70s. Her Werner catheter shows good urine production. Departure - Departure Time of Disposition: 15:00 Disposition: DC/Tfer to Acute Hospital 02 Reason for Transfer *Q: Other (Patient with non-STEMI and potentially cardiac catheterization/intervention) Condition: Critical Clinical Impression: Non-ST elevated myocardial infarction (non-STEMI), Severe dehydration, Atrial fibrillation with RVR, Transient hypotension, Acute kidney injury Diarrhea Qualifiers: Diarrhea type: unspecified type Qualified Code(s): R19.7 - Diarrhea, unspecified Referrals: Crow Cevallos MD [Primary Care Provider] - Forms: ED Department Discharge - My Orders Last 24 Hours: My Active Orders 08/21/18 11:03 Chest 1V Frontal [CR] Stat Sodium Chloride 0.9% [Saline Flush] 10 ml FLUSH ASDIRECTED PRN Blood Culture x2 Reflex Set [OM.PC] Urgent Peripheral IV Insertion Adult [OM.PC] Routine EKG 12 Lead [EK] Routine 08/21/18 11:07 EKG Documentation Completion [RC] ASDIRECTED Urinary Catheter Assessment [RC] QSHIFT 08/21/18 11:15 Insert Urinary Catheter [OM.PC] Q24H Sodium Chloride 0.9% [Normal Saline] 1,000 ml IV ASDIRECTED 08/21/18 11:40 CULTURE BLOOD [BC] Urgent 08/21/18 11:41 Cervical Spine wo Cont [CT] Stat Head wo Cont [CT] Stat Shoulder Comp Rt [CR] Stat 08/21/18 11:43 Vaccines to be Administered [RC] PER UNIT ROUTINE 08/21/18 11:45 CULTURE BLOOD [BC] Urgent CULTURE URINE [RM] Stat 08/21/18 13:15 Diltiazem 125 mg Sodium Chloride 0.9% [Normal Saline] 100 ml IV NOW - Assessment/Plan Last 24 Hours: My Active Orders 08/21/18 11:03 Chest 1V Frontal [CR] Stat Sodium Chloride 0.9% [Saline Flush] 10 ml FLUSH ASDIRECTED PRN Blood Culture x2 Reflex Set [OM.PC] Urgent Peripheral IV Insertion Adult [OM.PC] Routine EKG 12 Lead [EK] Routine 08/21/18 11:07 EKG Documentation Completion [RC] ASDIRECTED Urinary Catheter Assessment [RC] QSHIFT 08/21/18 11:15 Insert Urinary Catheter [OM.PC] Q24H Sodium Chloride 0.9% [Normal Saline] 1,000 ml IV ASDIRECTED 08/21/18 11:40 CULTURE BLOOD [BC] Urgent 08/21/18 11:41 Cervical Spine wo Cont [CT] Stat Head wo Cont [CT] Stat Shoulder Comp Rt [CR] Stat 08/21/18 11:43 Vaccines to be Administered [RC] PER UNIT ROUTINE 08/21/18 11:45 CULTURE BLOOD [BC] Urgent CULTURE URINE [RM] Stat 08/21/18 13:15 Diltiazem 125 mg Sodium Chloride 0.9% [Normal Saline] 100 ml IV NOW
[2018-08-21 11:40] VITALS: BP 113/73; PULSE 175
[2018-08-21] MEDS ORDERED: Diphtheria,Pertussis(Acell),Tetanus Vaccine 0.5 ML SDV IM ONE (11:43)
[2018-08-21] MEDS ORDERED: Diltiazem 50 MG/10 ML SDV IVPUSH ONE (11:57)
[2018-08-21] MEDS ORDERED: Diltiazem 25 MG/5 ML SDV IVPUSH ONE (12:30)
[2018-08-21] MEDS ORDERED: Diltiazem 125 MG in Sodium Chloride 0.9% 100 ML IV STA (13:15)
== END 2018-08-21 15:10 ==
LOC: FB.ED 10:39
DX: I21.4 Non-ST elevation (NSTEMI) myocardial infarction (principal); N17.9 Acute kidney failure, unspecified; I95.9 Hypotension, unspecified; E86.0 Dehydration; I48.91 Unspecified atrial fibrillation; S00.83XA Contusion of other part of head, initial encounter; R19.7 Diarrhea, unspecified; Z79.82 Long term (current) use of aspirin; Z90.49 Acquired absence of other specified parts of digestive tract; W01.198A Fall on same level from slipping, tripping and stumbling with subsequent striking against other object, initial encounter
CPT/HCPCS: 36415; 51702; 70450; 71045; 72125; 73030; 80053; 81001; 82550; 83605; 83880; 84484; 85025; 86140; 87040; 87086; 90471; 90715; 93005; 93010; 96361; 96374; 99285; J3490; J7030; J7040

== ENCOUNTER 2018-10-06 10:14 | Emergency (ER) | payer MEDICAID, MEDICARE ==
[2018-10-06] MEDS ORDERED: Aspirin 81 MG Tab.Chew PO ONE (10:25)
--- NOTE | 2018-10-06 10:36 | EDM.PDOC ---
ED HPI GENERAL MEDICAL PROBLEM - General Stated Complaint: CHEST PAIN; short of breath Time Seen by Provider: 10/06/18 10:30 Source of Information: Reports: Patient History Limitations: Reports: No Limitations - History of Present Illness INITIAL COMMENTS - FREE TEXT/NARRATIVE: 88-year-old female who reports that she had diarrhea on night and none since that time and felt okay during the day yesterday but last night she began to have feelings of shortness of breath that progressively worsened through the night. She also noted that her heart was beating fast as it had in the past when I saw her with atrial fib with RVR. This morning and approximately 4-5 AM she developed chest pressure and that has been waxing and waning since that time. She has had no nausea or vomiting. She has no chest pressure right now. She rates the chest pressure as a 0/10. That pressure went away after she was placed on oxygen here. Her O2 saturations are 90-91% on 3 L/m via nasal cannula now and she states she feels better with no real shortness of breath now. She initially went to the walk-in clinic and was noted to have an O2 saturation in the upper 80s, was placed on oxygen and was brought over here for further evaluation. No cough. No fevers or chills. She does have some swelling in her ankles that is chronic and unchanged. No diaphoresis. She does feel somewhat weak all over but she has had no syncope or near syncope at this time. There are no other associated signs or symptoms. There are no other modifying factors. Onset: Other (Last night) Duration: Getting Worse Location: Reports: Chest Quality: Reports: Pressure Severity: Moderate Improves with: Reports: Other (Oxygen therapy here in the emergency department) Worsens with: Reports: Movement (And activity) Context: Reports: Other (As above) Associated Symptoms: Reports: Chest Pain, Shortness of Breath, Weakness Treatments VP COMMUNICATIONS: Reports: Other (see below) (Nothing) Midsternal chest pressure Pain Score (Numeric/FACES): 0 - Related Data Allergies Allergy/AdvReac Type Severity Reaction Status Date / Time No Known Allergies Allergy Verified 08/21/18 11:19 Home Meds: Home Meds Aspirin [Adult Low Dose Aspirin EC] 81 mg PO DAILY 11/25/12 [History] Diltiazem [Cardizem CD] 120 mg PO DAILY 10/06/18 [History] Metoprolol Tartrate 12.5 mg BID 10/06/18 [History] Past Medical History HEENT History: Reports: Other (See Below) (Dry eyes on Restasis drops) Cardiovascular History: Reports: Afib, CAD, [place] Gastrointestinal History: Reports: Other (See Below) Other Gastrointestinal History: 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 Oncologic (Cancer) History: Reports: Breast - Past Surgical History GI Surgical History: Reports: Cholecystectomy, Colonoscopy Female Surgical History: Reports: Mastectomy (Right) Oncologic Surgical History: Reports: Mastectomy Other Oncologic Surgeries/Procedures: Right side Social & Family History - Tobacco Use Smoking Status *Q: Never Smoker - Caffeine Use Caffeine Use: Reports: Coffee - Alcohol Use Alcohol Use History: Yes Alcohol Use Comment: She has an occasional beer and an occasional glass of wine. - Living Situation & Occupation Living situation: Reports: , Assisted Living Occupation: Retired Social History Comment: She is here with her daughter. ED ROS GENERAL - Review of Systems Review Of Systems: See Below Constitutional: Reports: Weakness HEENT: Reports: No Symptoms Respiratory: Reports: Shortness of Breath Cardiovascular: Reports: Chest Pain, Lightheadedness, Palpitations GI/Abdominal: Reports: No Symptoms : Reports: No Symptoms Musculoskeletal: Reports: Other (Swelling in her ankles which is chronic.) Skin: Reports: No Symptoms Neurological: Reports: No Symptoms Hematologic/Lymphatic: Reports: No Symptoms (On no chronic anticoagulation.) ED EXAM, GENERAL - Physical Exam Exam: See Below Exam Limited By: No Limitations General Appearance: Alert, WD/WN, Moderate Distress Eye Exam: Bilateral Eye: EOMI, Normal Inspection, PERRL Ears: Normal External Exam Ear Exam: Bilateral Ear: Auricle Normal Nose: Normal Inspection, Normal Mucosa, No Blood Throat/Mouth: Normal Inspection, Normal Oropharynx, Normal Voice, No Airway Compromise Head: Atraumatic, Normocephalic Neck: Normal Inspection, Supple, Non-Tender, Full Range of Motion Respiratory/Chest: No Respiratory Distress, No Accessory Muscle Use, Crackles ( Bilaterally) Cardiovascular: Normal Peripheral Pulses, Regular Rate, Rhythm (At present but just previous she had A. fib with RVR with a heart rate in the 140s), JVD (To about penitentiary up the neck), Tachycardia Peripheral Pulses: 2+: Radial (L), Radial (R), Dorsalis Pedis (L), Dorsalis Pedis (R) GI/Abdominal: Normal Bowel Sounds, Soft, Non-Tender, No Mass Back Exam: Normal Inspection, Full Range of Motion Extremities: Normal Inspection, Normal Range of Motion, Non-Tender, Normal Capillary Refill, Pedal Edema (Ankle and feet slightly swollen) Neurological: Alert, Oriented, CN II-XII Intact, Normal Cognition, No Motor/ Sensory Deficits Skin Exam: Warm, Dry, Intact, Normal Color, No Rash EKG INTERPRETATION EKG Date: 10/06/18 Time: 10:17 Rhythm: NSR Rate (Beats/Min): 110 [place]: LAD-Left [place] Deviation P-Wave: Present QRS: Other (Left anterior fascicular block) ST-T: Other (Poor R-wave progression. ST depression in V5 and V6) QT: Normal Comparison: No Change (Except for tachycardia which is present today, there is really no change from the second EKG performed on 08/21/2018 after the patient converted from A. fib with RVR.) Course - Vital Signs Last Recorded V/S: Last Vital Signs Temp 36.8 C 10/06/18 10:14 Pulse 112 H 10/06/18 10:14 Resp 20 10/06/18 10:14 BP 138/106 H 10/06/18 10:14 Pulse Ox 88 L 10/06/18 10:14 - Orders/Labs/Meds Orders: Active Orders 24 hr Category Date Time Status EKG Documentation Completion [RC] ASDIRECTED Care 10/06/18 10:50 Active Oxygen Therapy Adult [Oxygen Therapy, ED] [RC] Care 10/06/18 10:48 Active ASDIRECTED Chest 1V Frontal [CR] Stat Exams 10/06/18 10:48 Taken Sodium Chloride 0.9% [Saline Flush] Med 10/06/18 10:48 Active 10 ml FLUSH ASDIRECTED PRN Peripheral IV Insertion Adult [OM.PC] Routine Oth 10/06/18 10:48 Ordered EKG 12 Lead [EK] Routine Ther 10/06/18 10:50 Ordered Medication Orders Sodium Chloride (Saline Flush) 10 ml FLUSH ASDIRECTED PRN PRN Reason: Keep Vein Open Last Admin: 10/06/18 11:55 Dose: 10 ml Labs: Laboratory Tests 10/06/18 10/06/18 10/06/18 Range/Units 10:25 10:25 10:25 WBC 8.4 (4.5-12.0) X10-3/uL RBC 4.07 (3.23-5.20) x10(6)uL Hgb 12.3 (11.5-15.5) g/dL Hct 37.0 (30.0-51.3) % MCV 90.9 (80-96) fL MCH 30.3 (27.7-33.6) pg MCHC 33.3 (32.2-35.4) g/dL RDW 14.3 (11.5-15.5) % Plt Count 159 (125-369) X10(3)uL MPV 8.1 (7.4-10.4) fL Neut % (Auto) 86.0 H (46-82) % Lymph % (Auto) 5.6 L (13-37) % [place] % (Auto) 7.3 (4-12) % Eos % (Auto) 0 L (1.0-5.0) % Baso % (Auto) 1 (0-2) % Neut # (Auto) 7.2 (1.6-8.3) # Lymph # (Auto) 0.5 L (0.6-5.0) # [place] # (Auto) 0.6 (0.0-1.3) # Eos # (Auto) 0.0 (0.0-0.8) # Baso # (Auto) 0.1 (0.0-0.2) # PT 10.6 (8.7-11.1) INR 1.09 (0.89-1.13) APTT 24.2 L (24.4-33.2) SECONDS POC VBG pH (7.31-7.41) POC VBG pCO2 (41-51) mmHG POC VBG HCO3 (23-28) mmol/L POC VBG Total CO2 (24-29) mmol/L POC VBG Base Excess (-2-3) mmol/L Sodium 135 (135-145) mmol/L Potassium 3.7 (3.5-5.3) mmol/L Chloride 102 (100-110) mmol/L Carbon Dioxide 25 (21-32) mmol/L BUN 11 D (7-18) mg/dL Creatinine 0.8 (0.55-1.02) mg/dL Est Cr Clr Drug Dosing 38.23 mL/min Estimated GFR (MDRD) > 60 (>60) BUN/Creatinine Ratio 13.8 (9-20) Glucose 136 H (80-116) mg/dL Calcium 8.7 (8.6-10.2) mg/dL Total Bilirubin 1.5 H (0.1-1.3) mg/dL AST 22 D (5-25) IU/L ALT 21 D (12-36) U/L Alkaline Phosphatase 113 H (56-112) IU/L Troponin I (<0.017-0.056) ng/mL NT-Pro-B Natriuret Pep (<=450) pg/mL Total Protein 7.1 (6.0-8.0) g/dL Albumin 3.1 (2.9-4.5) g/dL Globulin 4.0 g/dL Albumin/Globulin Ratio 0.8 10/06/18 10/06/18 Range/Units 10:25 14:11 WBC (4.5-12.0) X10-3/uL RBC (3.23-5.20) x10(6)uL Hgb (11.5-15.5) g/dL Hct (30.0-51.3) % MCV (80-96) fL MCH (27.7-33.6) pg MCHC (32.2-35.4) g/dL RDW (11.5-15.5) % Plt Count (125-369) X10(3)uL MPV (7.4-10.4) fL Neut % (Auto) (46-82) % Lymph % (Auto) (13-37) % [place] % (Auto) (4-12) % Eos % (Auto) (1.0-5.0) % Baso % (Auto) (0-2) % Neut # (Auto) (1.6-8.3) # Lymph # (Auto) (0.6-5.0) # [place] # (Auto) (0.0-1.3) # Eos # (Auto) (0.0-0.8) # Baso # (Auto) (0.0-0.2) # PT (8.7-11.1) INR (0.89-1.13) APTT (24.4-33.2) SECONDS POC VBG pH 7.39 (7.31-7.41) POC VBG pCO2 43.4 (41-51) mmHG POC VBG HCO3 26.2 (23-28) mmol/L POC VBG Total CO2 28 (24-29) mmol/L POC VBG Base Excess 1 (-2-3) mmol/L Sodium (135-145) mmol/L Potassium (3.5-5.3) mmol/L Chloride (100-110) mmol/L Carbon Dioxide (21-32) mmol/L BUN (7-18) mg/dL Creatinine (0.55-1.02) mg/dL Est Cr Clr Drug Dosing mL/min Estimated GFR (MDRD) (>60) BUN/Creatinine Ratio (9-20) Glucose (80-116) mg/dL Calcium (8.6-10.2) mg/dL Total Bilirubin (0.1-1.3) mg/dL AST (5-25) IU/L ALT (12-36) U/L Alkaline Phosphatase (56-112) IU/L Troponin I 0.182 H* (<0.017-0.056) ng/mL NT-Pro-B Natriuret Pep 2870 H* (<=450) pg/mL Total Protein (6.0-8.0) g/dL Albumin (2.9-4.5) g/dL Globulin g/dL Albumin/Globulin Ratio Meds: Medications Generic Name Dose Route Start Last Admin Trade Name Freq PRN Reason Stop Dose Admin Sodium Chloride 10 ml 10/06/18 10:48 10/06/18 11:55 Saline Flush FLUSH 10 ml ASDIRECTED PRN Administration Keep Vein Open Discontinued Medications Generic Name Dose Route Start Last Admin Trade Name Freq PRN Reason Stop Dose Admin Diltiazem HCl 15 mg 10/06/18 10:50 10/06/18 11:09 Diltiazem IVPUSH 10/06/18 10:51 15 mg ONETIME ONE Administration Furosemide 40 mg 10/06/18 11:31 10/06/18 11:50 Lasix IVPUSH 10/06/18 11:32 40 mg NOW ONE Administration - Radiology Interpretation Free Text/Narrative:: Portable chest x-ray shows CHF, - Re-Assessments/Exams Free Text/Narrative Re-Assessment/Exam: 10/06/18 12:15: Patient feels much improved. Her O2 saturations are 95% on 4 L/ m via nasal cannula and she has no increased work of breathing at this point. Her chest x-ray shows CHF and she has been given Lasix 40 mg IV. Her pulse rate is in the 80s and in a normal sinus rhythm after the diltiazem. Her troponin is 0.182. The daughter who is the power of real estate associate attorney is to be at the emergency department around 1 PM. I have been told that she had a fairly complete cardiac workup at [facility] in [place] on 08/21 to 08/23/2018 when I transferred her there at that time. I have requested these records to be sent and I will wait to discuss the patient's case with the patient's daughter who is power of real estate associate attorney. 10/06/18 13:16: The patient remains vitally stable. Respiratory status is somewhat improved. No further chest pain. No further A. fib. Heart rate is in the 80s. She has had good output after the Lasix. The records from [place] show that she did have a cardiac catheterization that showed normal coronary arteries. She also had an echocardiogram which showed an EF of 65% and did show some mitral regurgitation. I am still awaiting the patient's daughter. 10/06/18 13:40: The patient's is still requiring 4 L/m via nasal cannula and when she is tried to be weaning down she desats into the mid 80s.. She has had more urine out after the Lasix. The patient's daughter arrived and I discussed the laboratory and x-ray findings with the daughter and with the patient and the rest of the family. The patient will need admission to the hospital secondary to her new onset decompensated CHF with acute respiratory failure. With the patient's elevated troponin and the new onset CHF, I think she will need cardiology specially services and possibly even a repeat echocardiogram which would not be available at this point at [facility]. Therefore the patient will need to be transferred to a hospital with these specially services. The family wishes for me to discuss her case with the doctors at [facility] in [place]. 10/06/18 14:08: I discussed the patient's case with Dr. Clement, hospitalist at [facility], and he has agreed to accept the patient in transfer. The patient will be transferred via ambulance to [facility] for direct admission. The patient and the family are in agreement with plans for transfer. 10/06/18 14:19: The venous blood gas showed a normal pH and a normal PCO2. Her O2 saturations are 94-95% on 4 L/m via nasal cannula. Awaiting bed assignment from [facility] and then the patient will be transferred via ambulance to [facility] for direct admission. Departure - Departure Time of Disposition: 14:15 Disposition: DC/Tfer to [facility] 02 Condition: Fair (Guarded) Clinical Impression: Acute decompensated heart failure, Elevated troponin Respiratory failure with hypoxia Qualifiers: Chronicity: acute Qualified Code(s): J96.01 - Acute respiratory failure with hypoxia - Discharge Information Referrals: Crow Cevallos MD [Primary Care Provider] - Critical Care Note - Critical Care Note Total Time (mins): 85 Comments: Total critical care time spent with the patient during initial evaluation and then treatment and stabilization of the patient was 85 minutes. - My Orders Last 24 Hours: My Active Orders 10/06/18 10:48 Oxygen Therapy Adult [Oxygen Therapy, ED] [RC] ASDIRECTED Chest 1V Frontal [CR] Stat Sodium Chloride 0.9% [Saline Flush] 10 ml FLUSH ASDIRECTED PRN Peripheral IV Insertion Adult [OM.PC] Routine 10/06/18 10:50 EKG Documentation Completion [RC] ASDIRECTED EKG 12 Lead [EK] Routine - Assessment/Plan Last 24 Hours: My Active Orders 10/06/18 10:48 Oxygen Therapy Adult [Oxygen Therapy, ED] [RC] ASDIRECTED Chest 1V Frontal [CR] Stat Sodium Chloride 0.9% [Saline Flush] 10 ml FLUSH ASDIRECTED PRN Peripheral IV Insertion Adult [OM.PC] Routine 10/06/18 10:50 EKG Documentation Completion [RC] ASDIRECTED EKG 12 Lead [EK] Routine
[2018-10-06 10:45] VITALS: BP 138/106; PULSE 112
[2018-10-06] MEDS ORDERED: Sodium Chloride 0.9% 10 ML Syringe FLUSH PRN (10:48)
[2018-10-06] MEDS ORDERED: Diltiazem 25 MG/5 ML SDV IVPUSH ONE (10:50)
[2018-10-06] MEDS ORDERED: Furosemide 40 MG/4 ML VIAL IVPUSH ONE (11:31)
--- NOTE | 2018-10-08 11:30 | CR ---
INDICATION: Shortness of breath, chest pain. CHEST: A single AP upright portable view of the chest, 10/06/18, was compared with 08/21/18 and 11/25/12. The heart is enlarged. The aorta is calcified in the arch area. There is appearance of dextroconvex scoliosis, which is emphasized by rotation of the chest to the left. Bibasilar pleural parenchymal changes are noted, which are compatible with pneumonia and pleuritis and should be correlated clinically. Overlying EKG leads are noted. No definite evidence of CHF is seen. IMPRESSION: 1. Bibasilar pleural parenchymal changes, compatible with pneumonia and pleuritis - correlate clinically. 2. ASHD with cardiomegaly. MTDD
== END 2018-10-06 15:40 ==
LOC: FB.ED 10:14
DX: I50.9 Heart failure, unspecified (principal); J96.01 Acute respiratory failure with hypoxia; R79.89 Other specified abnormal findings of blood chemistry; I48.91 Unspecified atrial fibrillation; I25.2 Old myocardial infarction; Z90.49 Acquired absence of other specified parts of digestive tract
CPT/HCPCS: 71045; 80053; 82803; 83880; 84484; 85025; 85610; 85730; 93005; 93010; 96374; 96375; 99285; A9270; J1940; J3490

== ENCOUNTER 2018-10-09 13:38 | Inpatient (IN) | payer MEDICARE, MEDICAID ==
[2018-10-09] MEDS ORDERED: Melatonin 3 MG Tab PO PRN (17:46)
[2018-10-09] MEDS ORDERED: Carboxymethylcellulose Sodium 0.5% Ophth Soln 15 ML Bottle EYEBOTH PRN ×2 (17:46→17:58)
--- NOTE | 2018-10-09 17:52 | PCM.HP.2 ---
H&P History of Present Illness - General Date of Service: 10/09/18 Admit Problem/Dx: Admission Diagnosis/Problem Admission Diagnosis/Problem Pulmonary embolism Source of Information: Patient, Family History Limitations: Reports: No Limitations - History of Present Illness Initial Comments - Free Text/Narative: This is an 88-year-old female patient that lives on her own. Her to be hospitalized she has some shortness of breath and diarrhea. Then she started having heart palpitations was seen in the ER. She was transferred to [place]. She was diagnosed with atrial fib, acute ND, pulmonary embolism. She was stabilized and her oxygen improved and placed on Eliquis. Transferred back here for rehabilitation. Patient denies shortness of breath, chest pain, abdominal pain. She states occasionally his leg swelling in her ankles right more than left but not now. - Related Data Allergies/Adverse Reactions: Allergies Allergy/AdvReac Type Severity Reaction Status Date / Time No Known Allergies Allergy Verified 10/09/18 14:59 Home Medications: Home Meds Carboxymethylcellulose Sodium [Refresh Tears] 1 drop EYEBOTH ASDIRECTED PRN [History] Metoprolol Tartrate 12.5 mg BID 10/06/18 [History] Apixaban [Eliquis] 5 mg PO BID 10/09/18 [History] Apixaban [Eliquis] 10 mg PO BID 10/09/18 [History] Levalbuterol HCl [Xopenex] 0.63 mg IH Q4H PRN 10/09/18 [History] Melatonin 3 mg PO BEDTIME PRN 10/09/18 [History] guaiFENesin [Mucinex] 600 mg PO BID 10/09/18 [History] Past Medical History HEENT History: Reports: Hard of Hearing, Other (See Below) Other HEENT History: DRY EYES Cardiovascular History: Reports: Afib, CAD, Heart Failure, ND Other Cardiovascular History: daughter states that patient had a heart attack 10 years ago and was sent to [place]. 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 Genitourinary History: Reports: None CUSTOMER SUPPORT REPRESENTATIVE History: Reports: Other OB/BYN History: Musculoskeletal History: Reports: Arthritis Neurological History: Reports: Headaches, Chronic Psychiatric History: Reports: Anxiety, Depression Hematologic History: Reports: Blood Transfusion(s) Oncologic (Cancer) History: Reports: Breast - Infectious Disease History Infectious Disease History: Reports: Chicken Pox, Measles, Mumps - Past Surgical History HEENT Surgical History: Reports: Cataract Surgery GI Surgical History: Reports: Cholecystectomy Female Surgical History: Reports: Mastectomy Oncologic Surgical History: Reports: Mastectomy Other Oncologic Surgeries/Procedures: Right side Social & Family History - Family History Family Medical History: Noncontributory - Tobacco Use Smoking Status *Q: Never Smoker Second Hand Smoke Exposure: Yes - Caffeine Use Caffeine Use: Reports: Coffee, Tea - Recreational Drug Use Recreational Drug Use: No - Living Situation & Occupation Living situation: Reports: , Assisted Living Occupation: Retired H&P Review of Systems - Review of Systems: Review Of Systems: See Below General: Reports: Weakness HEENT: Reports: No Symptoms Pulmonary: Reports: No Symptoms Cardiovascular: Reports: No Symptoms Gastrointestinal: Reports: No Symptoms Genitourinary: Reports: No Symptoms Musculoskeletal: Reports: No Symptoms Skin: Reports: No Symptoms Psychiatric: Reports: No Symptoms Neurological: Reports: No Symptoms Hematologic/Lymphatic: Reports: No Symptoms Immunologic: Reports: No Symptoms Exam - Exam Exam: See Below - Vital Signs Vital Signs: Last Vital Signs Temp 98.7 F 10/09/18 14:34 Pulse 95 10/09/18 14:34 Resp 16 10/09/18 14:34 BP 140/86 10/09/18 14:34 Pulse Ox 98 10/09/18 14:34 Weight: 110 lb 3.2 oz - Exam General: Alert, Oriented, Cooperative HEENT: Hearing Intact, Posterior Pharynx Clear, TMs Clear Neck: Supple, Trachea Midline. No: Carotid Bruit, JVD Lungs: Clear to Auscultation, Normal Respiratory Effort Cardiovascular: Regular Rate, Systolic Murmur GI/Abdominal Exam: Normal Bowel Sounds, Soft, Non-Tender, No Organomegaly, No Distention, No Abnormal Bruit, No Mass Extremities: Normal Inspection, Normal Range of Motion, Non-Tender, No Pedal Edema Skin: Warm, Dry, Intact Neurological: Normal Speech, Normal Tone Psychiatric: Alert, Normal Affect, Normal Mood - Problem List (1) Pulmonary embolism SNOMED Code(s): 10648593 ICD Code: I26.99 - OTHER PULMONARY EMBOLISM WITHOUT ACUTE COR PULMONALE Status: Acute Current Visit: Yes (2) Physical deconditioning SNOMED Code(s): 13786669502221 ICD Code: R53.81 - OTHER MALAISE Status: Acute Current Visit: Yes (3) Atrial fibrillation with RVR SNOMED Code(s): 935013081860239 ICD Code: I48.91 - UNSPECIFIED ATRIAL FIBRILLATION Status: Acute Current Visit: No (4) Non-ST elevated myocardial infarction (non-STEMI) SNOMED Code(s): 09264965 ICD Code: I21.4 - NON-ST ELEVATION (NSTEMI) MYOCARDIAL INFARCTION Status: Acute Current Visit: No Problem List Initiated/Reviewed/Updated: Yes Orders Last 24hrs: Active Orders 24 hr Category Date Time Status Patient Status [ADT] Routine ADT 10/09/18 17:44 Ordered Height and Weight [RC] WEEKLY Care 10/09/18 17:44 Ordered Oxygen Therapy [RC] PRN Care 10/09/18 17:44 Ordered Up With Assistance [RC] ASDIRECTED Care 10/09/18 17:44 Ordered VTE/DVT Education [RC] Per Unit Routine Care 10/09/18 17:44 Ordered Vital Signs [RC] PER UNIT ROUTINE Care 10/09/18 17:44 Ordered OT Evaluation and Treatment [CONS] Routine Cons 10/09/18 17:44 Ordered PT Evaluation and Treatment [CONS] Routine Cons 10/09/18 17:44 Ordered Regular Diet [DIET] Diet 10/09/18 Dinner Ordered Apixaban [Eliquis] Med 10/09/18 21:00 Ordered 10 mg PO BID Apixaban [Eliquis] Med 10/09/18 21:00 Ordered 5 mg PO BID Carboxymethylcellulose Sodium [Refresh Tears 0.5%] Med 10/09/18 17:46 Ordered 1 drop EYEBOTH ASDIRECTED PRN Levalbuterol HCl [Xopenex] Med 10/09/18 17:46 Ordered 0.63 mg IH Q4H PRN Melatonin Med 10/09/18 17:46 Ordered 3 mg PO BEDTIME PRN Metoprolol Tartrate [Lopressor] Med 10/09/18 21:00 Ordered 12.5 mg PO BID guaiFENesin [Mucinex] Med 10/09/18 21:00 Ordered 600 mg PO BID Resuscitation Status Routine Resus Stat 10/09/18 17:44 Ordered Medication Orders Apixaban (Eliquis) 10 mg PO BID JAMILA Apixaban (Eliquis) 5 mg PO BID JAMILA Artificial Tears (Refresh Tears 0.5%) ml EYEBOTH ASDIRECTED PRN PRN Reason: Dry Eyes Guaifenesin (Mucinex) 600 mg PO BID JAMILA Melatonin (Melatonin) 3 mg PO BEDTIME PRN PRN Reason: Insomnia Metoprolol Tartrate (Lopressor) 12.5 mg PO BID [facility] Non-Formulary Medication (Levalbuterol Hcl [Xopenex]) 0.63 mg IH Q4H PRN PRN Reason: Shortness of Breath Assessment/Plan Comment:: 1. Admit to swing bed. 2. PT/OT consult 3. Regular diet high-fiber 4. continue her current medications per [place]. 5. Up with assist 6. No labs. 7. Discussed CODE STATUS. She wants to be a DNR/DNI.
[2018-10-09] MEDS ORDERED: Levalbuterol HCl 1.25 MG/3 ML Neb INH PRN (18:21)
[2018-10-09] MEDS: Apixaban 5 MG Tab PO SCH (20:53)
[2018-10-09] MEDS: Metoprolol Tartrate 25 MG Tab PO SCH (20:53)
[2018-10-09] MEDS: guaiFENesin 600 MG Tab.ER PO SCH (20:54)
[2018-10-09] MEDS ORDERED: Apixaban 5 MG Tab PO SCH (21:00)
[2018-10-10] MEDS: Metoprolol Tartrate 25 MG Tab PO SCH ×2 (09:12→20:44)
[2018-10-10] MEDS: guaiFENesin 600 MG Tab.ER PO SCH ×2 (09:12→20:44)
[2018-10-10] MEDS: Apixaban 5 MG Tab PO SCH ×2 (09:12→20:44)
[2018-10-11] MEDS: guaiFENesin 600 MG Tab.ER PO SCH ×2 (08:55→22:01)
[2018-10-11] MEDS: Apixaban 5 MG Tab PO SCH ×2 (08:55→22:01)
[2018-10-11] MEDS: Metoprolol Tartrate 25 MG Tab PO SCH ×2 (08:55→22:01)
[2018-10-12] MEDS: Metoprolol Tartrate 25 MG Tab PO SCH ×2 (09:16→20:00)
[2018-10-12] MEDS: Apixaban 5 MG Tab PO SCH ×2 (09:16→20:00)
[2018-10-12] MEDS: guaiFENesin 600 MG Tab.ER PO SCH ×2 (09:17→19:59)
[2018-10-13] MEDS: Metoprolol Tartrate 25 MG Tab PO SCH ×2 (09:11→20:01)
[2018-10-13] MEDS: Apixaban 5 MG Tab PO SCH ×2 (09:11→20:00)
[2018-10-13] MEDS: guaiFENesin 600 MG Tab.ER PO SCH ×2 (09:13→20:01)
[2018-10-14] MEDS: Apixaban 5 MG Tab PO SCH ×2 (08:25→20:01)
[2018-10-14] MEDS: Metoprolol Tartrate 25 MG Tab PO SCH ×2 (08:26→20:02)
[2018-10-14] MEDS: guaiFENesin 600 MG Tab.ER PO SCH ×2 (08:27→20:01)
[2018-10-15] MEDS ORDERED: Apixaban 5 MG Tab PO SCH (09:00)
[2018-10-15] MEDS: Metoprolol Tartrate 25 MG Tab PO SCH ×2 (09:46→20:55)
[2018-10-15] MEDS: Apixaban 5 MG Tab PO SCH ×2 (09:46→20:54)
[2018-10-15] MEDS: guaiFENesin 600 MG Tab.ER PO SCH ×2 (09:51→20:56)
[2018-10-16] MEDS ORDERED: Apixaban 5 MG Tab PO SCH (09:00)
[2018-10-16] MEDS: guaiFENesin 600 MG Tab.ER PO SCH (09:07)
[2018-10-16] MEDS: Metoprolol Tartrate 25 MG Tab PO SCH (09:07)
[2018-10-16 09:08] VITALS: BP 113/67
--- NOTE | 2018-10-16 12:21 | DISCH ---
DISCHARGE DATE: 10/16/2018 HISTORY: Rosemary is an 88-year-old woman who was admitted to [facility] on 10/09/2018 after an acute hospitalization. Other past history includes remote history of AR and a recurrent AR subendocardial during the acute hospitalization in [place], remote history of right mastectomy for breast cancer, cholecystectomy, osteoarthritis, and mild congestive heart failure. The patient was continued on her oral Eliquis, her Mucinex, melatonin, and metoprolol during hospitalization. Vital signs are stable. Last weight 112 pounds 8 ounces, blood pressure 113/67, pulse 81, O2 saturation 95% on room air. She also received therapy services while she was here and by 10/16/2018, was deemed strong enough to return to home. She is discharged to home in improved condition to continue medications as follows: Eliquis 5 mg b.i.d. Artificial Tears p.r.n., melatonin 3 mg at bedtime, metoprolol 12.5 mg b.i.d. She is asked to have a followup appointment in the office in 2 weeks and call should there be questions or problems prior to that time. /[id number] BRISSA/SHAN
== END 2018-10-16 13:40 | disposition home or self-care (01) | DRG 175 ==
LOC: FB.MS 14:20
PROVIDERS: ADMIT Family Medicine; ATTEND Family Medicine
DX: I26.99 Other pulmonary embolism without acute cor pulmonale (principal); I21.4 Non-ST elevation (NSTEMI) myocardial infarction; I50.9 Heart failure, unspecified; I48.91 Unspecified atrial fibrillation; Z66 Do not resuscitate; M19.90 Unspecified osteoarthritis, unspecified site; H91.90 Unspecified hearing loss, unspecified ear; I25.10 Atherosclerotic heart disease of native coronary artery without angina pectoris; F41.9 Anxiety disorder, unspecified; Z77.22 Contact with and (suspected) exposure to environmental tobacco smoke (acute) (chronic); F32.9 Major depressive disorder, single episode, unspecified; Z98.49 Cataract extraction status, unspecified eye; I25.2 Old myocardial infarction; Z90.11 Acquired absence of right breast and nipple; Z90.49 Acquired absence of other specified parts of digestive tract; Z79.01 Long term (current) use of anticoagulants; Z79.899 Other long term (current) drug therapy
CPT/HCPCS: 36415; 82565; 83880; 84484; 85018; 97110-GO; 97116-GP; 97161-GP; 97165-GO; 97530-GO; 97535-GO; A9270-GY